=== PATIENT | male | born 1985 | race Caucasian/White ===

== ENCOUNTER 2016-12-21 17:47 | Emergency (ER) | payer MEDICAID, OTHER ==
[~2016-12-21] VITALS: Ht 185.4 cm; Wt 79.5 kg
[~2016-12-21 17:47] MED LIST: RISP2TAB37 PO; TRAZ100T4 PO
[2016-12-21 17:49] VITALS: BP 131/84; PULSE 78; RESP 18; TEMP 97.4; O2SAT 100
[2016-12-21] MEDS ORDERED: SODIUM CHLOR 0.9% 1000 ML INJ 1,000 ML IV SCH (18:06)
--- NOTE | 2016-12-21 18:09 | PD ---
HPI Chief Complaint: GI Complaint Time Seen by Provider: 18:05 Travel History International Travel<30 days: No Contact w/Intl Traveler<30days: No Traveled to known affect area: No History of Present Illness HPI Patient is a 31-year-old otherwise healthy male presents emergency department with complaint of 12 hours of nausea, vomiting after eating a can of chili. Patient states that he has had 5-10 episodes of nonbloody nonbilious emesis. No associated diarrhea. Only mild epigastric abdominal discomfort. Denies any history of gallbladder, pancreatitis or hepatobiliary pathology. PFSH Past Medical History ADHD: Yes Asthma: Yes Blood Disorders: No Bipolar Disorder: Yes Anxiety: Yes Cancer: No Cardiovascular Problems: No Diabetes: No Diminished Hearing: No Endocrine: No Gastrointestinal Disorders: No Genitourinary: No Headaches: No Immune Disorder: No Musculoskeletal: No Neurologic: No Psychiatric: No Reproductive: No Respiratory: No Seizures: No Past Surgical History Other Surgery: Yes Social History Alcohol Use: No Tobacco Use: Yes (6 CIGARETTES PER DAY) Substance Use: Yes (marijuana) Allergies-Medications (Allergen,Severity, Reaction): Coded Allergies: No Known Allergies (Verified , 06/29/16) Reported Meds & Prescriptions Reported Meds & Active Scripts Active No Active Prescriptions or Reported Medications Review of Systems Except as stated in HPI: all other systems reviewed are Neg Physical Exam Narrative GENERAL: Well-appearing male in no acute distress SKIN: Warm and dry. HEAD: Normocephalic. EYES: No scleral icterus. No injection or drainage. ENT: Mucous membranes pink and moist. NECK: Supple CARDIOVASCULAR: Regular rate and rhythm. No murmur appreciated. RESPIRATORY: No accessory muscle use. Clear to auscultation. Breath sounds equal bilaterally. GASTROINTESTINAL: Abdomen soft, non-tender, nondistended. MUSCULOSKELETAL: Normal gait NEUROLOGICAL: Awake and alert. Normal speech. PSYCHIATRIC: Appropriate mood and affect; insight and judgment normal. Data Data Last Documented VS Vital Signs Date Time Temp Pulse Resp B/P Pulse Ox O2 Delivery O2 Flow Rate FiO2 12/21/16 17:49 97.4 78 18 131/84 100 Orders Complete Blood Count With Diff (12/21/16 18:06) Comprehensive Metabolic Panel (12/21/16 18:06) Lipase (12/21/16 18:06) Iv Access Insert/Monitor (12/21/16 18:06) Ondansetron Inj (Zofran Inj) (12/21/16 18:15) Sodium Chlor 0.9% 1000 Ml Inj (Ns 1000 M (12/21/16 18:06) Sodium Chloride 0.9% Flush (Ns Flush) (12/21/16 18:15) Ketorolac Inj (Toradol Inj) (12/21/16 18:15) Ns (Bolus) Inj (12/21/16 18:15) MDM Medical Decision Making Medical Screen Exam Complete: Yes Emergency Medical Condition: Yes Medical Record Reviewed: Yes Differential Diagnosis 31-year-old male here with complaint of 12 hours of nausea, vomiting after eating a can of chili. Differential includes gastritis, pancreatitis, hepatobiliary pathology, cannabis hyperemesis syndrome. Narrative Course Patient was on monitor, IV established and blood obtained. Given 4 mg Zofran, 30 mg Toradol, 2 L normal saline bolus. CBC, CMP, lipase were obtained and are pending at the time this dictation. Patient signed out to oncoming provider waiting results of same. Scripts No Active Prescriptions or Reported Meds Priyanka Guevara MD Dec 21, 2016 18:09
[2016-12-21] MEDS ORDERED: ONDANSETRON HCL 4 MG/2 ML VIAL IVP ONE (18:15)
[2016-12-21] MEDS ORDERED: SODIUM CHLOR 0.9% 1000 ML INJ 1,000 ML IV ONE ×3 (18:15→20:56)
[2016-12-21] MEDS ORDERED: KETOROLAC TROMETHAMINE 30 MG/ML (IVP) VIAL IVP ONE (18:15)
[2016-12-21] MEDS ORDERED: SODIUM CHLORIDE 0.9% FLUSH 5 ML FLUSH IVF PRN (18:15)
[2016-12-21 18:27] LABS: AUTOMATED NEUTROPHIL # 6.3 TH/MM3 (1.8-7.7); BASOPHIL % 0.3 % (0.0-2.0); EOSINOPHIL % 0.1 % (0.0-4.0); HEMATOCRIT 46.5 % (39.0-51.0); HEMO FLAGS DIFF FINAL; MEAN CELL VOLUME 88.1 FL (80.0-100.0); MEAN CORPUSCULAR HEMOGLOBIN 29.8 PG (27.0-34.0); MEAN CORPUSCULAR HGB CONC 33.9 % (32.0-36.0); MONO % 4.7 % (0.0-8.0); NEUT % 81.9 % (16.0-70.0); PLATELET COUNT 249 TH/MM3 (150-450); RED BLOOD COUNT 5.28 MIL/MM3 (4.50-5.90); RED CELL DISTRIBUTION WIDTH 12.8 % (11.6-17.2); WHITE BLOOD COUNT 7.7 TH/MM3 (4.0-11.0)
[2016-12-21 18:54] VITALS: BP 120/57; PULSE 67; RESP 15; O2SAT 100
[2016-12-21 19:14] LABS: ALKALINE PHOSPHATASE 65 U/L (45-117); ALT (GPT) 39 U/L (12-78); ANION GAP 17 MEQ/L (5-15); AST (GOT) 30 U/L (15-37); BICARBONATE 19.6 MEQ/L (21.0-32.0); BLOOD UREA NITROGEN 12 MG/DL (7-18); CHLORIDE 97 MEQ/L (98-107); GLOMERULAR FILTRATION RATE 78 ML/MIN (>89); POTASSIUM 4.1 MEQ/L (3.5-5.1); SODIUM (NA) 134 MEQ/L (136-145); TOTAL BILIRUBIN ADULT 0.9 MG/DL (0.2-1.0)
[2016-12-21] MEDS ORDERED: PROM25TA5 PO (19:52)
[2016-12-21] MEDS ORDERED: MAALSUS18 PO (19:53)
--- NOTE | 2016-12-21 19:53 | PD ---
Data Data Last Documented VS Vital Signs Date Time Temp Pulse Resp B/P Pulse Ox O2 Delivery O2 Flow Rate FiO2 12/21/16 18:55 15 12/21/16 18:54 67 120/57 100 12/21/16 17:49 97.4 Orders Complete Blood Count With Diff (12/21/16 18:06) Comprehensive Metabolic Panel (12/21/16 18:06) Lipase (12/21/16 18:06) Iv Access Insert/Monitor (12/21/16 18:06) Ondansetron Inj (Zofran Inj) (12/21/16 18:15) Sodium Chlor 0.9% 1000 Ml Inj (Ns 1000 M (12/21/16 18:06) Sodium Chloride 0.9% Flush (Ns Flush) (12/21/16 18:15) Ketorolac Inj (Toradol Inj) (12/21/16 18:15) Sodium Chlor 0.9% 1000 Ml Inj (Ns 1000 M (12/21/16 18:15) Sodium Chlor 0.9% 1000 Ml Inj (Ns 1000 M (12/21/16 19:30) Basic Metabolic Panel (Bmp) (12/21/16 19:28) Arterial Blood Gas (Abg) (12/21/16 20:56) Sodium Chlor 0.9% 1000 Ml Inj (Ns 1000 M (12/21/16 20:56) Drug Screen, Random Urine (12/21/16 20:56) Alcohol (Ethanol) (12/21/16 20:56) Tylenol (Acetaminophen) (12/21/16 20:56) Lactic Acid (12/21/16 20:56) Chest, Single Ap (12/21/16 21:16) Ct Abd/Pel W Iv Contrast(Rout) (12/21/16 21:25) Iohexol 350 Inj (Omnipaque 350 Inj) (12/21/16 21:43) Creatine Kinase (Cpk) (12/21/16 21:15) Labs Laboratory Tests Test 12/21/16 12/21/16 12/21/16 12/21/16 18:17 19:45 21:09 21:15 White Blood Count 7.7 TH/MM3 Red Blood Count 5.28 MIL/MM3 Hemoglobin 15.7 GM/DL Hematocrit 46.5 % Mean Corpuscular Volume 88.1 FL Mean Corpuscular Hemoglobin 29.8 PG Mean Corpuscular Hemoglobin 33.9 % Concent Red Cell Distribution Width 12.8 % Platelet Count 249 TH/MM3 Mean Platelet Volume 10.4 FL Neutrophils (%) (Auto) 81.9 % Lymphocytes (%) (Auto) 13.0 % Monocytes (%) (Auto) 4.7 % Eosinophils (%) (Auto) 0.1 % Basophils (%) (Auto) 0.3 % Neutrophils # (Auto) 6.3 TH/MM3 Lymphocytes # (Auto) 1.0 TH/MM3 Monocytes # (Auto) 0.4 TH/MM3 Eosinophils # (Auto) 0.0 TH/MM3 Basophils # (Auto) 0.0 TH/MM3 CBC Comment DIFF FINAL Differential Comment Sodium Level 134 MEQ/L 138 MEQ/L Potassium Level 4.1 MEQ/L 4.2 MEQ/L Chloride Level 97 MEQ/L 103 MEQ/L Carbon Dioxide Level 19.6 MEQ/L 16.0 MEQ/L Anion Gap 17 MEQ/L 19 MEQ/L Blood Urea Nitrogen 12 MG/DL 11 MG/DL Creatinine 1.12 MG/DL 0.90 MG/DL Estimat Glomerular Filtration 78 ML/MIN 100 ML/MIN Rate Random Glucose 78 MG/DL 71 MG/DL Calcium Level 9.8 MG/DL 8.7 MG/DL Total Bilirubin 0.9 MG/DL Aspartate Amino Transf 30 U/L (AST/SGOT) Alanine Aminotransferase 39 U/L (ALT/SGPT) Alkaline Phosphatase 65 U/L Total Protein 8.6 GM/DL Albumin 4.7 GM/DL Lipase 167 U/L Blood Gas Puncture Site LT RADIAL Blood Gas Patient Temperature 98.6 Blood Gas HCO3 15 mmol/L Blood Gas Base Excess -9.6 mmol/L Blood Gas Oxygen Saturation 93 % Arterial Blood pH 7.33 Arterial Blood Partial 30 mmHg Pressure CO2 Arterial Blood Partial 89 mmHG Pressure O2 Arterial Blood Oxygen Content 19.0 Vol % Arterial Blood 1.7 % Carboxyhemoglobin Arterial Blood Methemoglobin 2.1 % Blood Gas Hemoglobin 14.5 G/DL Blood Gas Inspired Oxygen 21 % Lactic Acid Level 0.7 mmol/L Total Creatine Kinase 136 U/L Urine Opiates Screen POS Acetaminophen Level LESS THAN 2.0 MCG/ML Urine Barbiturates Screen POS Urine Amphetamines Screen NEG Urine Benzodiazepines Screen POS Urine Cocaine Screen NEG Urine Cannabinoids Screen POS Ethyl Alcohol Level LESS THAN 3 MG/DL [facility] Medical Record Reviewed: Yes Supervised Visit with MENDOZA: No Narrative Course CBC & BMP Diagram 12/21/16 18:17 AG 17 LFTs normal Lipase 167 Pt reports feeling much better at approx 715pm. Abdomen is soft and nontender. AG present. He has received 2L NS and a second BMP will be sent. If normal DC home with antiemetics. Please refer to the outgoing provider's documentation. The patient was reassessed and overall he appears quite well however the repeat BMP showed a widening anion gap of unknown etiology. In further discussion with the patient and he reveals he is taking multiple that complementary medications including adrafenil, paracetam, choline, noopept. Poison Control Center was notified and had no specific suggestions besides checking a phenobarbital level. Urine drug screen positive for opioids and benzodiazepines barbiturates and cannabinoids. The patient has remained hemodynamically stable. He is quite well-appearing overall. He and his father are quite well informed and have ensured me they will return with a low threshold should any concerning symptom evolve. Diagnosis Primary Impression: Nausea & vomiting Qualified Code: R11.2 - Non-intractable vomiting with nausea, unspecified vomiting type Additional Impression: Metabolic acidemia, unspecified Referrals: Primary Care Physician 2 days Additional Instruction: You have a choice when it comes to health care, and we are glad that you chose [facility]. Hopefully, we have met your expectations on today's visit. You are welcome to return to [facility] at any time, as we are committed to meeting the health care needs of our community. Med/Other Pt SpecificInfo: Prescription(s) given Scripts Mowyqloe-Unhlmjkeo-Xcbjdubvzci Liq (Maalox Advanced Maximum Strength Liq)400-400 -40 Mg/5 Ml Xemy12-63 Ml PO QID PRN (INDIGESTION OR UPSET STOMACH) 5 Days Ref 0 Take between meals or as directed. Shake well. Maximum 60 ml/24 hrs. Prov:Karan Sage MD 12/21/16 Promethazine (Phenergan)25 Mg Tab25 Mg PO Q6H PRN (Nausea/Vomiting) #15 TAB Ref 0 Prov:Karan Sage MD 12/21/16 Disposition: 01 DISCHARGE HOME Condition: Stable Karan Sage MD Dec 21, 2016 19:53
[2016-12-21 20:29] LABS: POTASSIUM 4.2 MEQ/L (3.5-5.1)
[2016-12-21 21:22] LABS: BLOOD GAS BASE EXCESS -9.6 mmol/L (-2-2); BLOOD GAS CARBOXYHEMOGLOBIN 1.7 % (0-4); BLOOD GAS HCO3 15 mmol/L (22-26); BLOOD GAS METHEMOGLOBIN 2.1 % (0-2); BLOOD GAS O2 HGB SATURATION 93 % (90-100); BLOOD GAS PCO2 30 mmHg (38-42); BLOOD GAS PO2 89 mmHG (61-120); BLOOD GAS TOTAL HGB 14.5 G/DL (12.0-16.0); TEMP CORR TO 98.6
[2016-12-21 21:23] LABS: CRITICAL VALUE YES; DRAW SITE LT RADIAL; FIO2 21 %; NUMBER OF ARTERIAL PUNCTURES 1; STAT YES; ULNAR PULSE PRESENT
[2016-12-21 21:29] LABS: AMPHETAMINE, URINE NEG (NEG); BARBITURATES, URINE POS (NEG); COCAINE, URINE NEG (NEG)
[2016-12-21] MEDS ORDERED: IOHEXOL 350 MG/ML 10 ML VIAL (for RAD DIAG) IV ONE (21:43)
--- NOTE | 2016-12-21 21:52 | RADRPT ---
EXAM DATE/TIME: 12/21/2016 21:17 [facility] COMPARISON: No previous studies available for comparison. INDICATIONS : Abdominal and chest pain. MEDICAL HISTORY : None. SURGICAL HISTORY : None. ENCOUNTER: Initial ACUITY: 1 day PAIN SCORE: 6/10 LOCATION: Bilateral chest abdomen FINDINGS: A single view of the chest demonstrates the lungs to be symmetrically aerated without evidence of mas s, infiltrate or effusion. The cardiomediastinal contours are unremarkable. Osseous structures are intact. CONCLUSION: No acute disease. Antelmo Guadalupe MD on December 21, 2016 at 21:50 Board Certified Radiologist. This report was verified electronically.
--- NOTE | 2016-12-21 21:58 | RADRPT ---
EXAM DATE/TIME: 12/21/2016 21:42 [facility] COMPARISON: No previous studies available for comparison. INDICATIONS : Epigastric pain with nausea and vomiting. IV CONTRAST: 95 cc Omnipaque 350 (iohexol) IV ORAL CONTRAST: No oral contrast ingested. RADIATION DOSE: 7.72 CTDIvol (mGy) MEDICAL HISTORY : None SURGICAL HISTORY : None. ENCOUNTER: Initial ACUITY: 1 day PAIN SCALE: 6/10 LOCATION: upper quadrant TECHNIQUE: Volumetric scanning of the abdomen and pelvis was performed. Using automated exposure control and ad justment of the mA and/or kV according to patient size, radiation dose was kept as low as reasonably achievable to obtain optimal diagnostic quality images. FINDINGS: Lung bases are clear. No acute findings in the liver, spleen, adrenals, kidneys or pancreas. There is no free fluid. No bowel obstruction. No adenopathy. Mild constipation. No calcified gallstones or biliary ductal dilatation. No adenopathy. No acute bony abnormalities. CONCLUSION: No acute findings within the abdomen or pelvis. Mild constipation. Stomach mildly distended. Antelmo Guadalupe MD on December 21, 2016 at 21:52 Board Certified Radiologist. This report was verified electronically.
[2016-12-21 22:08] LABS: ACETAMINOPHEN LESS THAN 2.0 MCG/ML (10.0-30.0)
[2016-12-21 23:11] LABS: CREATINE KINASE 136 U/L (39-308)
[2016-12-22 01:18] VITALS: BP 121/60; PULSE 67; RESP 14; O2SAT 96
== END 2016-12-22 01:21 | disposition home or self-care (01) ==
LOC: NEPC 17:47
DX: R11.2 Nausea with vomiting, unspecified (principal); E87.2 Acidosis; J45.909 Unspecified asthma, uncomplicated; F17.210 Nicotine dependence, cigarettes, uncomplicated
CPT/HCPCS: 36600; 71010; 74177; 80048; 80053; 80307; 80320; 82550; 82805; 83605; 83690; 85025; 96374; 96375; 99284; J1885; J2405; J7030; Q9967; 80329; G0480